=== PATIENT | female | born 2000 | race American Indian/Alaskan Native ===

== ENCOUNTER 2021-07-30 19:49 | Emergency (ER) | payer SELFPAY ==
[2021-07-30 22:07] VITALS: BP 126/80
[2021-07-30] MEDS ORDERED: ACETAMINOPHEN 500 MG TAB PO STA (23:23)
[2021-07-30] MEDS ORDERED: IBUPROFEN 600 MG TAB PO ONE (23:23)
[2021-07-30] MEDS ORDERED: TETANUS,DIPH,PERTUSS(ACELL) VACCINE 0.5 ML SYRINGE IM ONE (23:24)
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
--- NOTE | 2021-07-30 23:58 | XRay Report ---
Left humerus 2 views INDICATION: Pain FINDINGS: Alignment appears normal. No periosteal reaction. No acute fracture. Signer Name: George Smiley MD Signed: 07/30/2021 11:54 PM Workstation Name: [id number]
--- NOTE | 2021-07-30 23:59 | XRay Report ---
Left knee 3 views INDICATION: Pain FINDINGS: Alignment appears normal. Mild patellofemoral degenerative change. No acute fracture or dis location. Signer Name: George Smiley MD Signed: 07/30/2021 11:54 PM Workstation Name: [id number]
== END 2021-07-31 01:25 | disposition home or self-care (01) ==
LOC: ED 19:49
DX: M25.562 Pain in left knee (principal); M79.602 Pain in left arm; Y04.8XXA Assault by other bodily force, initial encounter; Y93.89 Activity, other specified; Y92.89 Other specified places as the place of occurrence of the external cause; Y99.8 Other external cause status
CPT/HCPCS: 90471; 90715; 99283

== ENCOUNTER 2022-02-01 04:18 | Emergency (ER) | payer MEDICAID, OTHER ==
[2022-02-01 04:46] LABS: Bilirubin,Urine NEG (Negative); Blood,Urine NEG (Negative); Color,Urine Amber (Yellow); Mucus,Urine 3+ /HPF
[2022-02-01 04:51] LABS: Basophils # (Auto) 0.1 K/mm3 (0.0-0.1); Basophils % (Auto) 0.7 % (0.0-1.8); Eosinophils # (Auto) 0.1 K/mm3 (0.0-0.4); Eosinophils % (Auto) 0.4 % (0.0-4.3); Hemoglobin 12.8 gm/dl (10.1-14.3); Lymphocytes # (Auto) 1.1 K/mm3 (1.2-5.4); Lymphocytes % (Auto) 9.2 % (13.4-35.0); Mean Corpuscular HGB Conc 35 % (30-34); Mean Corpuscular Volume 91 fl (79-97); Monocytes # (Auto) 0.8 K/mm3 (0.0-0.8); Monocytes % (Auto) 6.7 % (0.0-7.3); Platelet Count 314 K/mm3 (140-440); Red Blood Count 3.95 M/mm3 (3.65-5.03); Red Cell Distribution Width 13.4 % (13.2-15.2)
[2022-02-01 05:15] LABS: Alanine Aminotransferase 10 units/L (7-56); Albumin 4.3 g/dL (3.9-5); Blood Urea Nitrogen 9 mg/dL (7-17); Hemolysis Index 57
[2022-02-01 05:31] LABS: BUN/Creatinine Ratio 23
[2022-02-01] MEDS ORDERED: ONDANSETRON 4 MG/2 ML INJ IV ONE (09:01)
[2022-02-01] MEDS ORDERED: SODIUM CHLORIDE 0.9% 1000 ML 1,000 ML IV ONE (09:01)
--- NOTE | 2022-02-01 09:43 | Ultrasound Report ---
US OB <= 14 weeks fetus INDICATION / CLINICAL INFORMATION: preg, abdominal pain. TECHNIQUE: Transabdominal. COMPARISON: None available. FINDINGS: UTERUS: Appears within normal limits. GESTATIONAL SAC: Well-defined oval shape and intrauterine in location. EMBRYO/FETUS: - Excel-Rump Length = 6.2 cm. - Heart Rate, beats per minute (if present) = 165 beats per minute ADNEXA: No significant abnormality. FREE FLUID: None. ADDITIONAL FINDINGS: None. IMPRESSION: 1. Single, living intrauterine with estimated sonographic age of 11 weeks 3 days. Signer Name: Coy Park MD Signed: 02/01/2022 9:38 AM Workstation Name: [id number]
--- NOTE | 2022-02-01 10:30 | Emergency Department Report ---
ED N/V/D HPI - General Chief complaint: Abdominal Pain Stated complaint: VOMITTING X 2 WEEKS Time Seen by Provider: 02/01/22 08:30 Source: patient Mode of arrival: Ambulatory Limitations: No Limitations - History of Present Illness Initial comments: 21-year-old black female presents to the emergency department for evaluation of 2-day 3-week history of persistent nausea vomiting. She states that she is unsure if she is . She denies abdominal pain at this time along with fever, dysuria, and vaginal discharge. MD complaint: nausea, vomiting -: Gradual, week(s) (2-3) Associated Abdominal Pain: No - Related Data Previous Rx's Medication Instructions Recorded Last Taken Type Acetaminophen [Acetaminophen TAB] 1,000 mg PO TID PRN #30 tablet 07/31/21 Unknown Rx Ibuprofen [Motrin 600 MG tab] 600 mg PO TID PRN #20 tablet 07/31/21 Unknown Rx Ondansetron [Zofran Odt] 4 mg PO Q8HR PRN #12 tab.rapdis 02/01/22 Unknown Rx Allergies Allergy/AdvReac Type Severity Reaction Status Date / Time No Known Allergies Allergy Unverified 07/30/21 21:57 ED Review of Systems ROS: Stated complaint: VOMITTING X 2 WEEKS Other details as noted in HPI Comment: All other systems reviewed and negative Constitutional: denies: chills, fever Respiratory: denies: shortness of breath, SOB with exertion, SOB at rest Cardiovascular: denies: chest pain Gastrointestinal: nausea, vomiting. denies: abdominal pain Musculoskeletal: denies: back pain Neurological: denies: headache, weakness ED Past Medical Hx - Medications Home Medications: Home Medications Medication Instructions Recorded Confirmed Last Taken Type Acetaminophen [Acetaminophen TAB] 1,000 mg PO TID PRN #30 tablet 07/31/21 Unknown Rx Ibuprofen [Motrin 600 MG tab] 600 mg PO TID PRN #20 tablet 07/31/21 Unknown Rx Ondansetron [Zofran Odt] 4 mg PO Q8HR PRN #12 tab.rapdis 02/01/22 Unknown Rx ED Physical Exam - General Limitations: No Limitations General appearance: alert, in no apparent distress - Head Head exam: Present: atraumatic, normocephalic - Eye Eye exam: Present: normal appearance. Absent: conjunctival injection - Neck Neck exam: Present: normal inspection. Absent: tenderness - Respiratory Respiratory exam: Present: normal lung sounds bilaterally. Absent: respiratory distress, wheezes, rales, rhonchi, chest wall tenderness, accessory muscle use - Cardiovascular Cardiovascular Exam: Present: regular rate, normal heart sounds - GI/Abdominal GI/Abdominal exam: Present: soft, tenderness, normal bowel sounds. Absent: distended, guarding, rebound, rigid - Extremities Exam Extremities exam: Present: normal inspection - Back Exam Back exam: Present: normal inspection. Absent: tenderness, CVA tenderness (R), CVA tenderness (L) - Neurological Exam Neurological exam: Present: alert. Absent: oriented X3 - Psychiatric Psychiatric exam: Present: normal affect, normal mood - Skin Skin exam: Present: warm, dry, intact, normal color ED Course Vital Signs 02/01/22 02/01/22 04:26 10:58 Temperature 98.5 F 98.8 F Pulse Rate 88 68 Respiratory 18 14 Rate Blood Pressure 104/68 Blood Pressure 118/74 [Right] O2 Sat by Pulse 97 98 Oximetry ED Medical Decision Making - Lab Data Result diagrams: 02/01/22 04:45 02/01/22 04:45 - Radiology Data Radiology results: report reviewed ultrasound: IMPRESSION: 1. Single, living intrauterine with estimated sonographic age of 11 weeks 3 days. - Medical Decision Making 21-year-old black female presents to the emergency department for evaluation of 2-day 3-week history of persistent nausea vomiting. She states that she is un sure if she is . She denies abdominal pain at this time along with fever, dysuria, and vaginal discharge. Noted to be tender on palpation to abdomen, so patient had ultrasound to confirm placement of . Ultrasound noted to have normal IUP at 11 weeks 3 days. No UTI noted on UA. Patient was discharged home with prescription for Zofran to use as needed for nausea and advised to follow-up with D[facility] MACHINE [facility]PERATOR [facility] for further evaluation he verbalized understanding of and agreement with plan of care. Critical care attestation.: If time is entered above; I have spent that time in minutes in the direct care of this critically ill patient, excluding procedure time. ED Disposition Clinical Impression: Nausea and vomiting during prior to 22 weeks gestation Disposition: HOME / SELF CARE / HOMELESS Is pt being admited?: No Does the pt Need Aspirin: No Condition: Stable Instructions: Hyperemesis Gravidarum, Morning Sickness, [id number], Abdominal Pain (ED) Additional Instructions: Take medications as prescribed. Follow-up with OB. Prescriptions: Ondansetron [Zofran Odt] 4 mg PO Q8HR PRN #12 tab.rapdis PRN Reason: Nausea And Vomiting Referrals: NICOLE CRAMER MD [Staff Physician] - 3-5 Days Forms: Work/School Release Form(ED) Time of Disposition: 10:30
[2022-02-01 10:59] VITALS: BP 118/74
== END 2022-02-01 10:59 | disposition home or self-care (01) ==
LOC: ED 04:18
DX: O21.9 Vomiting of pregnancy, unspecified (principal); Z3A.11 11 weeks gestation of pregnancy
CPT/HCPCS: 36415; 76801; 80053; 81001; 84702; 84703; 85025; 96361; 96374; 99284; J2405; J7030; Q0162

== ENCOUNTER 2022-05-22 11:06 | Emergency (ER) | payer MEDICAID ==
[2022-05-22 11:35] VITALS: BP 93/59
[2022-05-22 13:46] LABS: Bilirubin,Urine NEG (Negative); Blood,Urine NEG (Negative); Color,Urine Amber (Yellow); Urobilinogen,Urine < 2.0 mg/dL (<2.0)
[2022-05-22 13:50] LABS: Bacteria,Urine 1+ /HPF (Negative); Mucus,Urine 3+ /HPF
[2022-05-22] MEDS ORDERED: SODIUM CHLORIDE 0.9% 1000 ML 1,000 ML IV ONE (17:13)
[2022-05-22] MEDS ORDERED: ONDANSETRON 4 MG/2 ML INJ IV ONE (17:13)
--- NOTE | 2022-05-22 17:19 | Emergency Department Report ---
ED General Adult HPI - General Chief complaint: Nausea/Vomiting/Diarrhea Stated complaint: VOMITING, LOSS OF APPETITE Time Seen by Provider: 05/22/22 17:06 Source: patient Mode of arrival: Ambulatory Limitations: No Limitations - History of Present Illness Initial comments: Patient 22-year-old female who is G1, patient is currently 28 weeks , who presents for nausea vomiting throughout . Is been no fevers no chills. Patient rates symptoms at 4/10. Patient was taken sublingual Zofran however out of medication and no longer working. Symptoms are exacerbated by p.o. intake. Symptoms are relieved by nothing tried. Patient states she is now tolerating liquids however cannot tolerate food. Patient cannot get into see HADOOP ANALYST for 1 week. Patient appears well ,nontoxic, patient denies abdominal pain there is no vaginal bleeding spotting no back pain no dysuria frequency or urgency. Patient denies other symptoms symptoms - Related Data Previous Rx's Medication Instructions Recorded Last Taken Type Acetaminophen [Acetaminophen TAB] 1,000 mg PO TID PRN #30 tablet 07/31/21 Unknown Rx Ibuprofen [Motrin 600 MG tab] 600 mg PO TID PRN #20 tablet 07/31/21 Unknown Rx Ondansetron [Zofran Odt] 4 mg PO Q8HR PRN #12 tab.rapdis 02/01/22 Unknown Rx Metoclopramide [Reglan] 10 mg PO Q6H PRN #30 tablet 05/22/22 Unknown Rx cephALEXin [Keflex] 500 mg PO BID 7 Days #14 cap 05/22/22 Unknown Rx diphenhydrAMINE [Benadryl CAP] 25 mg PO Q6HR PRN #30 capsule 05/22/22 Unknown Rx Allergies Allergy/AdvReac Type Severity Reaction Status Date / Time No Known Allergies Allergy Unverified 07/30/21 21:57 ED Review of Systems ROS: Stated complaint: VOMITING, LOSS OF APPETITE Other details as noted in HPI Constitutional: denies: chills, fever Eyes: denies: eye pain, eye discharge, vision change ENT: denies: ear pain, throat pain Respiratory: denies: cough, shortness of breath, wheezing Cardiovascular: denies: chest pain, palpitations Endocrine: no symptoms reported Gastrointestinal: nausea, vomiting. denies: abdominal pain, diarrhea, constipation, melena Genitourinary: denies: urgency, dysuria, frequency, hematuria, discharge Musculoskeletal: denies: back pain, joint swelling, arthralgia Skin: denies: rash, lesions Neurological: denies: headache, weakness, paresthesias, vertigo Psychiatric: denies: anxiety, depression Hematological/Lymphatic: denies: easy bleeding, easy bruising ED Past Medical Hx - Medications Home Medications: Home Medications Medication Instructions Recorded Confirmed Last Taken Type Acetaminophen [Acetaminophen TAB] 1,000 mg PO TID PRN #30 tablet 07/31/21 Un known Rx Ibuprofen [Motrin 600 MG tab] 600 mg PO TID PRN #20 tablet 07/31/21 Unknown Rx Ondansetron [Zofran Odt] 4 mg PO Q8HR PRN #12 tab.rapdis 02/01/22 Unknown Rx Metoclopramide [Reglan] 10 mg PO Q6H PRN #30 tablet 05/22/22 Unknown Rx cephALEXin [Keflex] 500 mg PO BID 7 Days #14 cap 05/22/22 Unknown Rx diphenhydrAMINE [Benadryl CAP] 25 mg PO Q6HR PRN #30 capsule 05/22/22 Unknown R x ED Physical Exam - General Limitations: No Limitations General appearance: alert, in no apparent distress - Head Head exam: Present: normocephalic, normal inspection - Eye Eye exam: Present: EOMI Pupils: Present: normal accommodation - ENT ENT exam: Present: mucous membranes moist - Neck Neck exam: Present: normal inspection, full ROM. Absent: tenderness - Respiratory Respiratory exam: Present: normal lung sounds bilaterally. Absent: respiratory distress, wheezes - Cardiovascular Cardiovascular Exam: Present: regular rate, normal rhythm, normal heart sounds - GI/Abdominal GI/Abdominal exam: Present: soft, normal bowel sounds. Absent: distended, tenderness - Rectal Rectal exam: Present: deferred - Extremities Exam Extremities exam: Present: normal inspection, full ROM, normal capillary refill - Back Exam Back exam: Present: normal inspection, full ROM. Absent: CVA tenderness (R), CVA tenderness (L) - Neurological Exam Neurological exam: Present: alert, oriented X3, CN II-XII intact, normal gait - Psychiatric Psychiatric exam: Present: normal affect, normal mood - Skin Skin exam: Present: warm, dry, intact, normal color. Absent: rash ED Course Vital Signs 05/22/22 11:33 Temperature 98.3 F Pulse Rate 87 Respiratory 16 Rate Blood Pressure 93/59 [Left] O2 Sat by Pulse 97 Oximetry ED Medical Decision Making - Lab Data Labs 05/22/22 05/22/22 12:31 15:00 HCG, Quant 04115 H Urine Color [place] Urine Turbidity Cloudy Urine pH 5.0 Ur Specific [place] 1.026 Urine Protein 30 mg/dl Urine Glucose (UA) Neg Urine Ketones 80 Urine Blood Neg Urine Nitrite Neg Urine Bilirubin Neg Urine Urobilinogen < 2.0 Ur Leukocyte Esterase Mod Urine WBC (Auto) 7.0 H Urine RBC (Auto) 2.0 U Epithel Cells (Auto) 36.0 H Urine Bacteria (Auto) 1+ Ur Transition Epith Cell < 1 Urine Mucus 3+ - Medical Decision Making Labs notable symptoms improved with medications given in ED. Patient currently tolerating p.o. intake without nausea vomiting plan DC to home, Reglan and Benadryl as needed nausea vomiting. Follow-up with HADOOP ANALYST in 2 days, return to emergency department should symptoms worsen there is no abdominal pain no abdominal cramping no vaginal bleeding or spotting no back pain no fever chills. Critical care attestation.: If time is entered above; I have spent that time in minutes in the direct care of this critically ill patient, excluding procedure time. ED Disposition Clinical Impression: Nausea and vomiting during UTI (urinary tract infection) Qualifiers: Urinary tract infection type: acute cystitis Hematuria presence: without hematuria Qualified Code(s): N30.00 - Acute cystitis without hematuria Disposition: HOME / SELF CARE / HOMELESS Is pt being admited?: No Does the pt Need Aspirin: No Condition: Stable Instructions: Nausea and Vomiting, Adult, and Urinary Tract Infection Additional Instructions: Take medication as prescribed, return to emergency department should symptoms worsen. Prescriptions: diphenhydrAMINE [Benadryl CAP] 25 mg PO Q6HR PRN #30 capsule PRN Reason: Nausea And Vomiting cephALEXin [Keflex] 500 mg PO BID 7 Days #14 cap Metoclopramide [Reglan] 10 mg PO Q6H PRN #30 tablet PRN Reason: nausea vomiting Referrals: FARIBA BAILEY MD [Staff Physician] - 2-3 Days Forms: Work/School Release Form(ED) Time of Disposition: 17:56
== END 2022-05-22 18:31 | disposition home or self-care (01) ==
LOC: ED 11:06
DX: O23.43 Unspecified infection of urinary tract in pregnancy, third trimester (principal); O21.2 Late vomiting of pregnancy; Z3A.28 28 weeks gestation of pregnancy
CPT/HCPCS: 36415; 81001; 84702; 96361; 96374; 99283; J2405; J7030